=== PATIENT | male | born 1995 | race African-American/Black ===

== ENCOUNTER 2018-02-16 12:40 | Emergency (ER) | payer SELFPAY ==
--- NOTE | 2018-02-16 13:45 | ED.ADGEN ---
Past History Past Medical History: No Pertinent History Past Surgical History: No Surgical History Alcohol Use: None Drug Use: None Adult General Chief Complaint Chief Complaint Chest, abdominal pain [facility] HPI Patient is a 42-year-old -Northern Irish male with unknown medical history presents with left-sided upper abdominal and chest pain. No shortness of breath , no fever no cough. No nausea vomiting, hematemesis, coffee-ground emesis. No constipation or diarrhea. No urinary frequency urgency or hematuria. No history of kidney stones. Patient states that he has kidney issues as previously required surgery. He is unable to specify what surgery was aware surgery may have occurred. Patient recently relocated from [place] and is living with his father. Although patient's is unknown, he appears to suffer from chronic cognitive impairment. [] Review of Systems Review of Systems ROS as per HPI All other systems were reviewed and found to be within normal limits, except as documented in this note. Current Medications Current Medications Current Medications Medications (Trade) Dose Ordered Sig/Daniele Start Time Stop Time Status Last Admin Dose Admin Magnesium Citrate (Citroma) 296 ml STK-MED ONCE 02/16/18 15:21 02/16/18 15:29 DC Allergies Allergies Allergies Coded Allergies Type Severity Reaction Last Updated Verified No Known Drug Allergies 02/16/18 No Physical Exam Physical Exam Constitutional: Well developed, well nourished, no acute distress, non-toxic appearance. [] HENT: Normocephalic, atraumatic, bilateral external ears normal, oropharynx moist, no oral exudates, nose normal. [] Eyes: PERRLA, EOMI, conjunctiva normal, no discharge. [] Neck: Normal range of motion, no tenderness, supple. [] Cardiovascular:Heart rate regular rhythm, no murmur [] Lungs & Thorax: Bilateral breath sounds clear to auscultation. [] Abdomen: Bowel sounds normal, soft, no tenderness. [] Skin: Warm, dry, no erythema, no rash. [] Back: No tenderness. [] Extremities: No tenderness. [] Neurologic: Alert and oriented X 3, normal motor function, normal sensory function, no focal deficits noted. [] Psychologic: Affect normal, judgement normal, mood normal. [] Current Patient Data Vital Signs Vital Signs Date Time Temp Pulse Resp B/P (MAP) Pulse Ox O2 Delivery O2 Flow Rate FiO2 02/16/18 12:47 97.9 90 18 100 Room Air EKG EKG [EKG: No acute findings] Radiology/Procedures Radiology/Procedures [Acute abdominal series: No acute findings per radiology report] Course & Med Decision Making Course & Med Decision Making Pertinent Labs and Imaging studies reviewed. (See chart for details) Prescription abdominal, chest pain. No nausea vomiting, and abdomen soft,] Final Impression Final Impression [1 chest pain nonspecific 2 abdominal pain nonspecific] Dragon Disclaimer Dragon Disclaimer This electronic medical record was generated, in whole or in part, using a voice recognition dictation system. KARENA KAHN DO Feb 16, 2018 13:45
--- NOTE | 2018-02-16 14:03 | RAD ---
Acute abdomen series. History: Chest and epigastric pain for 2 days. Comparison: None. Findings: Frontal chest radiograph. Cardiac silhouette appears within normal limits for size. No pneumoperitoneum, pneumothorax, or large pleural effusion seen. No focal infiltrate is identified. Supine and upright AP views of the abdomen. Bowel gas pattern is nonspecific, without evidence of small bowel obstruction. Mild-moderate colonic stool is present. Impression: No acute abnormality identified in the chest or abdomen. Electronically signed by: Reji Dean MD (02/16/2018 2:00 PM) [place] [id number]
--- NOTE | 2018-02-16 14:50 | EKG ---
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
[2018-02-16 15:00] VITALS: BP 122/72
[2018-02-16] MEDS ORDERED: MAGNESIUM CITRATE 296 ML SOLUTION. ONE (15:21)
[2018-02-16] MEDS ORDERED: MAGNESIUM CITRATE 296 ML SOLUTION. PO ONE (15:30)
== END 2018-02-16 15:29 | disposition home or self-care (01) ==
LOC: ER 12:40
DX: R10.12 Left upper quadrant pain (principal); R07.89 Other chest pain
CPT/HCPCS: 74022; 93005; 99284

== ENCOUNTER 2020-07-09 01:32 | Emergency (ER) | payer OTHER ==
[~2020-07-09] VITALS: Ht 180.3 cm; Wt 66.0 kg
--- NOTE | 2020-07-09 01:34 | PHYS DOC ---
Past History Past Medical History: No Pertinent History Past Surgical History: No Surgical History Smoking: Cigarettes Alcohol Use: None Drug Use: None General Adult HPI: HPI: '"My tooth on the back is really hurting tonight...".. " I think it broke off... " Patient is a 25 year old male who presents with above hx and complaints of dental pain ,dental infection and a fracture of molar #17. Patient has multiple areas of dental caries. Does have gingivitis. No trismus. Some mild adenopathy angle of left mandible. Does appear to have fractured tooth #17. No pointing abscess appreciated. Patient denies any history immunosuppression. No recent travel. No severe ill contacts. Patient does not normally follow-up pr [facility] care. Does not follow-up with a dentist. Patient currently rating pain on fractured molar as severe. Review of Systems: Review of Systems: Constitutional: Denies fever or chills Eyes: Denies change in visual acuity HENT: Denies nasal congestion or sore throat. Complains of dental pain Respiratory: Denies cough or shortness of breath Cardiovascular: Denies chest pain or edema GI: Denies abdominal pain, nausea, vomiting, bloody stools or diarrhea : Denies dysuria Musculoskeletal: Denies back pain or joint pain Integument: Denies rash Neurologic: Denies headache, focal weakness or sensory changes Endocrine: Denies polyuria or polydipsia Lymphatic: Denies swollen glands Psychiatric: Denies depression or anxiety Family History: Family History: Noncontributory to presentation Current Medications: Current Meds: See nursing for home meds Allergies: Allergies: Allergies Coded Allergies Type Severity Reaction Last Updated Verified No Known Drug Allergies 02/16/18 No Physical Exam: PE: Constitutional: Moderate to severe acute distress, non-toxic appearance. [] HENT: Normocephalic, atraumatic, bilateral external ears normal, oropharynx moist, no oral exudates, nose normal. Multiple areas of dental decay gingivitis and fractured tooth #17. Eyes: PERRLA, EOMI, conjunctiva normal, no discharge. [] Neck: Normal range of motion, no tenderness, supple, no stridor. [] Cardiovascular:Heart rate regular rhythm, no murmur [] Lungs & Thorax: Bilateral breath sounds equal apex with scattered wheezes on auscultation [] Abdomen: Bowel sounds normal, soft, no tenderness, no masses, no pulsatile masses. [] Skin: Warm, dry, no erythema, no rash. Tattoos. Back: No tenderness, no CVA tenderness. [] Extremities: No tenderness, no cyanosis, no clubbing, ROM intact, no edema. [] Neurologic: Alert and oriented X 3, normal motor function, normal sensory function, no focal deficits noted. [] Psychologic: Affect anxious, judgement normal, mood normal. [] EKG: EKG: [] Radiology/Procedures: Radiology/Procedures: [] Heart Score: C/O Chest Pain: N/A Risk Factors: Risk Factors: DM, Current or recent (<one month) smoker, HTN, HLP, family history of CAD, obesity. Risk Scores: Score 0 - 3: 2.5% MACE over next 6 weeks - Discharge Home Score 4 - 6: 20.3% MACE over next 6 weeks - Admit for Clinical Observation Score 7 - 10: 72.7% MACE over next 6 weeks - Early Invasive Strategies Course & Med Decision Making: Course & Med Decision Making Pertinent Labs and Imaging studies reviewed. (See chart for details) Take Tylenol and ibuprofen for pain. Take Keflex 500 mg 3 times a day. Follow- up with dentist. Use sugarless chewing gum to cover fractured molar 17 this may help reduce pain. Patient must follow-up with a dentist. Nothing completed in the ED tonight will fix his underlying pain cause. Must follow-up. Rinse mouth with Listerine 4 times a day after eating. Encourage patient to stop smoking. Impression: 1. Multiple dental caries and gingivitis 2. Dental infection 3. Fractured molar 17 [] Dragon Disclaimer: Dragon Disclaimer: This electronic medical record was generated, in whole or in part, using a voice recognition dictation system. Departure Departure: Referrals: PCP,NO (PCP) Scripts Cephalexin (KEFLEX) 750 Mg Capsule 500 MG PO TID for dental infection. for 10 Days, #20 CAP Prov: CED ARREAGA MD 07/09/20 Helen Disclaimer This chart was dictated in whole or in part using Voice Recognition software in a busy, high-work load, and often noisy Emergency Department environment. It ma y contain unintended and wholly unrecognized errors or omissions. Dragon Disclaimer This chart was dictated in whole or in part using Voice Recognition software in a busy, high-work load, and often noisy Emergency Department environment. It may contain unintended and wholly unrecognized errors or omissions. CED ARREAGA MD Jul 09, 2020 01:34
[2020-07-09 01:44] VITALS: BP 144/89
[2020-07-09] MEDS ORDERED: CEPH750C9 PO (02:00)
[2020-07-09] MEDS ORDERED: HYDROcodon/IBUPROFEN 7.5/200MG 1 TAB TABLET PO ONE (02:30)
[2020-07-09] MEDS ORDERED: CEPHALEXIN 250 MG CAPSULE PO ONE (02:30)
== END 2020-07-09 02:28 | disposition home or self-care (01) ==
LOC: ER 01:32
DX: S02.5XXA Fracture of tooth (traumatic), initial encounter for closed fracture (principal); K02.9 Dental caries, unspecified; K05.10 Chronic gingivitis, plaque induced; F17.210 Nicotine dependence, cigarettes, uncomplicated; X58.XXXA Exposure to other specified factors, initial encounter; Y93.89 Activity, other specified; Y92.89 Other specified places as the place of occurrence of the external cause; Y99.8 Other external cause status
CPT/HCPCS: 99283

== ENCOUNTER 2020-07-30 18:28 | Emergency (ER) | payer OTHER ==
[~2020-07-30] VITALS: Ht 180.3 cm; Wt 66.0 kg
[2020-07-30 18:28] VITALS: BP 162/120
[~2020-07-30 18:28] MED LIST: CEPH750C9 PO
[2020-07-30] MEDS ORDERED: HYDROcodone/APAP 5/325MG 1 TAB TABLET PO ONE (20:30)
[2020-07-30] MEDS ORDERED: AMOX1TAB61 PO (20:30)
[2020-07-30] MEDS ORDERED: IBUPROFEN 600 MG TABLET. PO ONE (20:30)
--- NOTE | 2020-07-30 20:30 | PHYS DOC ---
Past History Past Medical History: No Pertinent History (YOGI YOUSSEF APRN) Past Surgical History: Other Additional Past Surgical Histo: kidney (YOGI YOUSSEF APRN) Smoking: Cigarettes Alcohol Use: None Drug Use: None (YOGI YOUSSEF APRN) Adult General Chief Complaint Chief Complaint: DENTAL PROBLEM HPI HPI Patient is a 25-year-old male presents to the emergency department complaining of dental pain. Patient states he has had pain to the left forward upper tooth for the past 2 months. Patient states he has an appointment to see a dentist tomorrow. Patient denies allergies to medications, states she has not taken any prescription medications at home, patient states he is not on any antibiotics. Patient states he does not smoke cigarettes, does not drink alcohol, does not use illicit drugs. Patient denies visual changes, denies numbness or tingling to his mouth or face. Patient denies any drooling or pain in his jaw or neck. Patient denies chest pain, or shortness of breath, patient denies any other physical complaints or physical concerns. (YOGI YOUSSEF APRN) Review of Systems Review of Systems 14 body systems of review of systems have been reviewed. See HPI for pertinent positives and negative responses, otherwise all other systems are negative, nonpertinent or noncontributory. (YOGI YOUSSEF APRN) Allergies Allergies Allergies Coded Allergies Type Severity Reaction Last Updated Verified No Known Drug Allergies 07/09/20 No (YOGI YOUSSEF APRN) Physical Exam Physical Exam Constitutional: Well developed, well nourished, no acute distress, non-toxic appearance. 25-year-old male in no apparent distress. HENT: Normocephalic, atraumatic, bilateral external ears normal, oropharynx moist, no oral exudates, nose normal. No trismus appreciated, no drooling appreciated, no tonsillar swelling, no signs of laryngeal infection. No lymphadenopathy of the head or neck appreciated, poor dental caries, multiple missing and broken teeth. No abscess is appreciated. Eyes: PERRLA, EOMI, conjunctiva normal, no discharge. Neck: Normal range of motion, no tenderness, supple, no stridor. Cardiovascular:Heart rate regular rhythm, no murmur Lungs & Thorax: Bilateral breath sounds clear to auscultation Abdomen: Bowel sounds normal, soft, no tenderness, no masses, no pulsatile masses. Skin: Warm, dry, no erythema, no rash. Back: No tenderness, no CVA tenderness. Extremities: No tenderness, no cyanosis, no clubbing, ROM intact, no edema. Neurologic: Alert and oriented X 3, normal motor function, normal sensory function, no focal deficits noted. Psychologic: Affect normal, judgement normal, mood normal. (YOGI YOUSSEF APRN) Current Patient Data Vital Signs Vital Signs Date Time Temp Pulse Resp B/P (MAP) Pulse Ox O2 Delivery O2 Flow Rate FiO2 07/30/20 18:28 98.2 87 16 162/120 (134) 98 Room Air (YOGI YOUSSEF APRN) EKG EKG [] (YOGI YOUSSEF APRN) Radiology/Procedures Radiology/Procedures [] (YOGI YOUSSEF APRN) Heart Score C/O Chest Pain: No Risk Factors: Risk Factors: DM, Current or recent (<one month) smoker, HTN, HLP, family history of CAD, obesity. Risk Scores: Risk Factors: DM, Current or recent (<one month) smoker, HTN, HLP, family history of CAD, obesity. (YOGI YOUSSEF APRN) Course & Med Decision Making Course & Med Decision Making Pertinent Labs and Imaging studies reviewed. (See chart for details) 25-year-old male, vital signs reviewed, presents emergency department concerning dental pain for the past 2 months. Physical examination showed marked dental caries with multiple broken teeth and decay. Will start on Augmentin twice daily x10 days, give to [place] here in the emergency department today. Patient gave verbal understanding of discharge home instructions, follow-up with dentist tomorrow, antibiotic use, primary care follow-up, return to ER precautions and concerns, was discharged home without incident. (YOGI YOUSSEF APRN) Course & Med Decision Making Did not see or evaluate patient. Agree with RIVET MACHINE OPERATOR's work-up and disposition per note (ÓSCAR ADAMES MD) Dragon Disclaimer Dragon Disclaimer This electronic medical record was generated, in whole or in part, using a voice recognition dictation system. (YOGI YOUSSEF APRN) Departure Departure: Impression: Primary Impression: Dental caries Additional Impression: Pain, dental Disposition: 01 DC HOME SELF CARE/HOMELESS Condition: GOOD Referrals: PCP,NO (PCP) Patient Instructions: Dental Caries Additional Instructions: Please keep your appointment with your dentist tomorrow, take antibiotics as directed, return to the emergency department for worsening symptoms or other concerns. EMERGENCY DEPARTMENT GENERAL DISCHARGE INSTRUCTIONS Thank you for coming to [facility] (ED) today and trusting us with you care. We trust that you had a positivie experience in our Emergency Department. If you wish to speak to the department management, you may call the director at [phone]. YOUR FOLLOW UP INSTRUCTIONS ARE FOLLOWS: 1. Do you have a private Doctor? If you do not have a private doctor, please ask for a resource list of physicians or clinics that may be able to assist you with follo w up care. 2. The Emergency Physician has interpreted your x-rays. The X-Ray specialist will also review them. If there is a change in the findings, you will be notified in 48 hours when at all possible. 3. A lab test or culture has been done, your results will be reviewed and you will be notified if you need a change in treatment. ADDITIONAL INSTRUCTIONS AND INFORMATION: 1. Your care today has been supervised by a physician who is specially trained in emergency care. Many problems require more than one evaluation for a complete diagnosis and treatment. We recommend that you schedule your follow up appointment as rec ommended to ensure complete treatment of you illness or injury. If you are unable to obtain follow up care and continue to have a problem, or if your condition worsens, we recommend that you return to the ED. 2. We are not able to safely determine your condition over the phone nor are we able to give sound medical advice over the phone. For these safety reasons, if you call for medical advice we will ask you to come to the ED for further evaluation. 3. If you have any questions regarding these discharge instructions please call the ED at [phone]. SAFETY INFORMATION: In the interest of safety, wellness, and injury prevention; we encourage you to wear your sealbelt, if you smoke; quite smoking, and we encourage family to use a protective helmet for bicycling and other sporting events that present an increased risk for head injury. IF YOUR SYMPTOMS WORSEN OR NEW SYMPTOMS DEVELOP, OR YOU HAVE CONCERNS ABOUT YOUR CONDITION; OR IF YOUR CONDITION WORSENS WHILE YOU ARE WAITING FOR YOUR FOLLOW UP APPOINTMENT; EITHER CONTACT YOUR PRIMARY CARE DOCTOR, THE PHYSICIAN WHOSE NAME AND NUMBER YOU WERE GIVEN, OR RETURN TO THE ED IMMEDIATELY. Scripts Amoxicillin/Potassium Clav (AUGMENTIN 875-125 TABLET) 1 Each Tablet 1 TAB PO BID for DENTAL INFECTION for 10 Days, #20 TAB 0 Refills Prov: YOGI YOUSSEF APRN 07/30/20 Problem Qualifiers YOGI YOUSSEF APRN Jul 30, 2020 20:30 ÓSCAR ADAMES MD Jul 30, 2020 22:05
== END 2020-07-30 20:44 | disposition home or self-care (01) ==
LOC: ER 18:28
DX: K02.9 Dental caries, unspecified (principal); F17.210 Nicotine dependence, cigarettes, uncomplicated
CPT/HCPCS: 99283

== ENCOUNTER 2020-12-22 13:35 | Emergency (ER) | payer MEDICARE, OTHER ==
[~2020-12-22] VITALS: Ht 180.3 cm; Wt 67.0 kg
[~2020-12-22 13:35] MED LIST changes: +AMOX1TAB61 PO
[2020-12-22 13:53] VITALS: BP 135/86
--- NOTE | 2020-12-22 14:03 | PHYS DOC ---
Past History Past Medical History: No Pertinent History Past Surgical History: Other Additional Past Surgical Histo: kidney Smoking: Cigarettes Alcohol Use: None Drug Use: None Adult General Chief Complaint Chief Complaint: CHEST PAIN HPI HPI Patient is a 25-year-old male who presents for vague chest pain. Onset was 3 days ago without any known inciting event, ingestion, exposure or any known inciting mechanism. Nothing known makes better, eating, physical movement and certain body positions make worse. Pain is described as sharp and 7/10 severity without any radiation. He has never had any pain like this in the past. He is otherwise healthy, denies any medical issues. No prior history of cardiac disease, is never passed out while playing sports, no family history of early cardiac disease, he had no issues as a child with no known congenital abnormalities of the heart or provocative work-up. Used to smoke, no alcohol or drug use reported Review of Systems Review of Systems Fourteen body systems of review of systems have been reviewed. See HPI for pertinent positives and negative responses, other fermin all other systems are negative, non-pertinent or non-contributory Allergies Allergies Allergies Coded Allergies Type Severity Reaction Last Updated Verified No Known Drug Allergies 07/09/20 No Physical Exam Physical Exam Constitutional: Well developed, well nourished, no acute distress, non-toxic appearance. HENT: Normocephalic, atraumatic, bilateral external ears normal, oropharynx moist, no oral exudates, nose normal. Eyes: PERRLA, EOMI, conjunctiva normal, no discharge. Neck: Normal range of motion, no tenderness, supple, no stridor. Cardiovascular: Heart rate regular, sinus rhythm, no murmurs rubs or gallops Lungs & Thorax: Bilateral breath sounds clear to auscultation Abdomen: Bowel sounds normal, soft, no tenderness, no masses, no pulsatile masses. Nonsurgical abdomen, no peritoneal signs Skin: Warm, dry, no erythema, no rash. Back: No tenderness, no CVA tenderness. Extremities: No tenderness, no cyanosis, no clubbing, ROM intact, no edema. Neurologic: Alert and oriented X 3, grossly normal motor & sensory function, no focal deficits noted. Psychologic: Flat affect, normal mood EKG EKG EKG ordered and interpreted by myself at 1346 hrs. as sinus rhythm at 85 bpm, unremarkable intervals, no axis deviation, no acute ischemic findings Radiology/Procedures Radiology/Procedures [] Heart Score C/O Chest Pain: Yes HEART Score for Chest Pain: HEART Score for Chest Pain Response (Comments) Value History Slighlty/Non-Suspicious 0 ECG Normal 0 Age < 45 0 Risk Factors No Risk Factors 0 Total 0 Risk Factors: Risk Factors: DM, Current or recent (<one month) smoker, HTN, HLP, family history of CAD, obesity. Risk Scores: Risk Factors: DM, Current or recent (<one month) smoker, HTN, HLP, family history of CAD, obesity. Course & Med Decision Making Course & Med Decision Making Vitals stable. HPI, physical examination and EKG nonconcerning for any emergent or surgical issues PERC negative. No obvious event or exposure, low risk for adverse cardiac event despite not being able to fully perform heart score I discussed limited indication for further diagnostic work-up in ER setting. I disclose extremely low risk of any concerning cardiopulmonary versus other event given his symptomology and advised close outpatient follow-up for continued work-up Dragon Disclaimer Dragon Disclaimer This electronic medical record was generated, in whole or in part, using a voice recognition dictation system. Departure Departure: Impression: Primary Impression: Chest pain, unspecified Disposition: HOME / SELF CARE / HOMELESS Condition: STABLE Referrals: PCP,TITO (PCP) Additional Instructions: You were seen for chest pain. Your workup did not show any acute abnormalities today, but does not indicate that you do not have underlying cardiovascular disease. You do need to follow up with your primary doctor and potentially a assistant grocery store manager for further evaluation and treatment. You should return to the ED if you develop worsening chest pain, shortness of breath, fever, abnormal sweating, leg swelling, or any other new or concerning symptoms. RAJANI DIAL DO Dec 22, 2020 14:03
--- NOTE | 2020-12-22 18:17 | EKG ---
[address] [address] Test Date: 2020-12-22 Test Time: 13:46:37 Pat Name: SALVATORE WHEELER Department: Room: Gender: M Specialty Development Consultant: BETHANIE : 1995 Requested By: RAJANI DIAL Order Number: [id number] Reading MD: Measurements Intervals [place] Rate: 85 P: 43 [place]: 150 QRS: 62 QRSD: 98 T: 29 QT: 324 QTc: 390 Interpretive Statements SINUS RHYTHM NORMAL ECG RI6.02 No previous ECG available for comparison
== END 2020-12-22 14:20 | disposition home or self-care (01) ==
LOC: ER 13:35
DX: R07.89 Other chest pain (principal); F17.210 Nicotine dependence, cigarettes, uncomplicated
CPT/HCPCS: 93005; 99283

== ENCOUNTER 2021-04-12 21:09 | Emergency (ER) | payer MEDICARE, OTHER ==
[~2021-04-12] VITALS: Ht 180.3 cm; Wt 70.5 kg
[2021-04-12 21:20] VITALS: BP 163/90
--- NOTE | 2021-04-12 21:31 | PHYS DOC ---
Past History Past Medical History: No Pertinent History Past Surgical History: Other Additional Past Surgical Histo: nasal surgery Smoking: Cigarettes Alcohol Use: None Drug Use: None General Adult EDM: Chief Complaint: MULTIPLE COMPLAINTS HPI: HPI: ".. I still getting chest pain .. off and on.. here in [place].. I was here before to get it checked out... and I got my Rt. middle finger caught in door at work... " Patient is a 25 year old male who presents with above hx and complaints of injury to Rt. middle or third finger which got caught in a door while working at [employer]. Pain is located on distal tip of finger. Reportedly got finger caught in a door that was shutting. Patient is right-hand dominant Pt. also complaints of chest pain after lifting boxes at [employer]. Pain is on right- sided chest wall. Is somewhat reproducible with movement. Patient denies any trauma to the chest wall, may have injured it lifting boxes at work. Review of Systems: Review of Systems: Constitutional: Denies fever or chills Eyes: Denies change in visual acuity HENT: Denies nasal congestion or sore throat Respiratory: Denies cough or shortness of breath Cardiovascular: Complains of chest pain GI: Denies abdominal pain, nausea, vomiting, bloody stools or diarrhea : Denies dysuria Musculoskeletal: Complains of right third finger contusion. Integument: Denies rash Neurologic: Denies headache, focal weakness or sensory changes Endocrine: Denies polyuria or polydipsia Lymphatic: Denies swollen glands Psychiatric: Denies depression or anxiety Family History: Family History: Noncontributory to presentation Current Medications: Current Meds: See nursing for home meds Allergies: Allergies: Allergies Coded Allergies Type Severity Reaction Last Updated Verified No Known Drug Allergies 04/12/21 No Physical Exam: PE: Constitutional: no acute distress, non-toxic appearance. [] HENT: Normocephalic, atraumatic, bilateral external ears normal, oropharynx moist, no oral exudates, nose normal. [] Chipped incisor #8 Eyes: PERRLA, EOMI, conjunctiva normal, no discharge. [] Neck: Normal range of motion, no tenderness, supple, no stridor. [] Cardiovascular:Heart rate regular rhythm, no murmur [] Lungs & Thorax: Bilateral breath sounds equal apex with scattered wheezes on auscultation [] Abdomen: Bowel sounds normal, soft, no tenderness, no masses, no pulsatile masses. [] Skin: Warm, dry, no erythema, no rash. Tattoos Back: No tenderness, no CVA tenderness. [] Extremities: No tenderness, no cyanosis, no clubbing, ROM intact, no edema. Except findings to this right third finger tip. Roll of money in Rt. sock. Bag of marijuana in Lt sock. Neurologic: Alert and oriented X 3, normal motor function, normal sensory function, no focal deficits noted. [] Psychologic: Affect normal, judgement normal, mood normal. [] Current Patient Data: Vital Signs: Vital Signs Date Time Temp Pulse Resp B/P (MAP) Pulse Ox O2 Delivery O2 Flow Rate FiO2 04/12/21 21:20 98.2 100 18 163/90 (114) 99 Room Air EKG: EKG: My interpretation EKG shows a sinus tachycardia 101 bpm. There are some T wave strain pattern in the anterior leads. But no findings of acute STEMI of contralateral changes time of this EKG is 2126 hrs. [] My interpretation EKG #2 shows a sinus rhythm at 75 bpm. No findings acute STEMI or contralateral changes. Time of EKG is 108 hours Radiology/Procedures: Radiology/Procedures: [[place] [address] IMAGING REPORT Signed PATIENT: SALVATORE WHEELER ACCOUNT: [id number] : 1995 LOCATION: ER AGE: 25 SEX: M EXAM STATUS: REG ER ORD. PHYSICIAN: CED ARREAGA MD REASON: cp PROCEDURE: PORTABLE CHEST 1V EXAM: AP View of the chest DATE: 04/12/2021 9:48 PM INDICATION: Chest pain COMPARISON: No Prior FINDINGS: The heart is not enlarged. Mediastinal and hilar contours are normal. No focal parenchymal airspace opacity. No pleural effusion or pneumothorax. IMPRESSION: 1. No radiographic evidence for acute cardiopulmonary process. Electronically signed by: Jn Amador MD (04/12/2021 10:03 PM) [facility] DICTATED AND SIGNED BY: JN AMADOR MD DATE: 04/12/212201 CC: CED ARREAGA MD; PCP,NO ~MTH0 0 ][address] [place] [id number] IMAGING REPORT Signed PATIENT: SALVATORE WHEELER ACCOUNT: [id number] : 1995 LOCATION: ER AGE: 25 SEX: M EXAM STATUS: REG ER ORD. PHYSICIAN: CED ARREAGA MD REASON: injury at [facility], PAIN 2-3 METACARPALS & DIGITS PROCEDURE: HAND RIGHT 3V EXAM: PA, Oblique and lateral views of the right hand DATE: 04/12/2021 9:47 PM INDICATION: Reason: injury at [facility], PAIN 2-3 METACARPALS DIGITS / Spl. Instructions: / History: . COMPARISON: No Prior FINDINGS: No evidence of acute fracture or dislocation. Joint spaces are preserved without significant degenerative/proliferative change. IMPRESSION: 1. No acute fracture or dislocation. Electronically signed by: Jn Amador MD (04/12/2021 10:04 PM) [facility] DICTATED AND SIGNED BY: JN AMADOR MD DATE: 04/12/212202 CC: CED ARREAGA MD; PCP,NO ~MTH0 0 Heart Score: C/O Chest Pain: Yes HEART Score for Chest Pain: HEART Score for Chest Pain Response (Comments) Value History Slighlty/Non-Suspicious 0 ECG Normal 0 Age < 45 0 Risk Factors No Risk Factors 0 Troponin < Normal Limit 0 Total 0 Risk Factors: Risk Factors: DM, Current or recent (<one month) smoker, HTN, HLP, family history of CAD, obesity. Risk Scores: Score 0 - 3: 2.5% MACE over next 6 weeks - Discharge Home Score 4 - 6: 20.3% MACE over next 6 weeks - Admit for Clinical Observation Score 7 - 10: 72.7% MACE over next 6 weeks - Early Invasive Strategies Course & Med Decision Making: Course & Med Decision Making Pertinent Labs and Imaging studies reviewed. (See chart for details) Take Tylenol ibuprofen for pain. Ice packs as needed to right third finger. Follow-up workman comp. Return if any concerns. Follow-up primary care. Is concerned about chest pain get outpatient stress test. Encourage patient to stop smoking. Impression: 1. Contusion crush injury right third finger-no fracture 2. Chest pain-appears to be chest wall. 3. Tobacco and Marijuana use [] Dragon Disclaimer: Dragon Disclaimer: This electronic medical record was generated, in whole or in part, using a voice recognition dictation system. Departure Departure: Referrals: PCP,NO (PCP) Helen Disclaimer This chart was dictated in whole or in part using Voice Recognition software in a busy, high-work load, and often noisy Emergency Department environment. It may contain unintended and wholly unrecognized errors or omissions. CED ARREAGA MD Apr 12, 2021 21:31
[2021-04-12] MEDS ORDERED: IV RINGERS SOLUTION,LACTATED 1,000 ML IV SCH (22:00)
[2021-04-12] MEDS ORDERED: ASPIRIN CHEWABLE 81 MG TABLET. PO ONE (22:00)
[2021-04-12 22:03] LABS: BASO % 1 % (0-3); EOS # 0.2 x10^3/uL (0.0-0.7); EOS % 3 % (0-3); HEMATOCRIT 45.4 % (39.0-53.0); HEMOGLOBIN 15.3 g/dL (13.0-17.5); LYMPH # 1.7 x10^3/uL (1.0-4.8); LYMPH % 22 % (24-48); MEAN CORPUSCULAR HEMOGLOBIN 33 pg (25-35); MEAN CORPUSCULAR HGB CONC 34 g/dL (31-37); MEAN CORPUSCULAR VOLUME 99 fL (79-100); MONO # 0.5 x10^3/uL (0.0-1.1); MONO % 7 % (0-9); NEUT # 5.2 x10^3uL (1.8-7.7); NEUT % 67 % (31-73); PLATELET COUNT 279 x10^3/uL (140-400); RED CELL DISTRIBUTION WIDTH 12.4 % (11.5-14.5); WHITE BLOOD COUNT 7.7 x10^3/uL (4.0-11.0)
--- NOTE | 2021-04-12 22:05 | RAD ---
EXAM: AP View of the chest DATE: 04/12/2021 9:48 PM INDICATION: Chest pain COMPARISON: No Prior FINDINGS: The heart is not enlarged. Mediastinal and hilar contours are normal. No focal parenchymal airspace opacity. No pleural effusion or pneumothorax. IMPRESSION: 1. No radiographic evidence for acute cardiopulmonary process. Electronically signed by: Jn Amador MD (04/12/2021 10:03 PM) GÓMEZ
--- NOTE | 2021-04-12 22:06 | RAD ---
EXAM: PA, Oblique and lateral views of the right hand DATE: 04/12/2021 9:47 PM INDICATION: Reason: injury at [facility], PAIN 2-3 METACARPALS DIGITS / Spl. Instructions: / History : . COMPARISON: No Prior FINDINGS: No evidence of acute fracture or dislocation. Joint spaces are preserved without significant degenera tive/proliferative change. IMPRESSION: 1. No acute fracture or dislocation. Electronically signed by: Jn Amador MD (04/12/2021 10:04 PM) GÓMEZ
[2021-04-12 22:10] LABS: GFR 108.5; POTASSIUM 3.7 mmol/L (3.5-5.1)
[2021-04-12 22:22] LABS: DIRECT BILIRUBIN 0.2 mg/dL (0.0-0.2); MAGNESIUM 2.4 mg/dL (1.8-2.4); TOTAL BILIRUBIN 1.1 mg/dL (0.2-1.0); TOTAL PROTEIN 8.4 g/dL (6.4-8.2)
--- NOTE | 2021-04-12 22:33 | EKG ---
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
[2021-04-13] MEDS ORDERED: KETOROLAC 30 MG/ML VIAL. IVP ONE
[2021-04-13 01:14] LABS: BILIRUBIN,URINE NEG (NEG); CLARITY,URINE CLEAR; COLOR,URINE YELLOW; GLUCOSE,URINE NEG (NEG); NITRITE,URINE NEG (NEG)
[2021-04-13 01:15] LABS: BACTERIA,URINE FEW /HPF (0-FEW); SQUAMOUS EPITHELIAL CELL,UR OCC /LPF
[2021-04-13 01:27] LABS: BARBITURATES NEG (NEG); BENZODIAZEPINES NEG (NEG); CANNABINOIDS NEG (NEG); COCAINE NEG (NEG); METHADONE NEG (NEG); OPIATES NEG (NEG); PHENCYCLIDINE NEG (NEG)
[2021-04-13 01:34] LABS: AMPHETAMINE/METHAMPHETAMINE POS (NEG)
--- NOTE | 2021-04-13 02:29 | EKG ---
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
== END 2021-04-13 02:25 | disposition home or self-care (01) ==
LOC: ER 21:09
DX: S60.031A Contusion of right middle finger without damage to nail, initial encounter (principal); R07.89 Other chest pain; F17.210 Nicotine dependence, cigarettes, uncomplicated; W23.0XXA Caught, crushed, jammed, or pinched between moving objects, initial encounter; Y93.89 Activity, other specified; Y92.89 Other specified places as the place of occurrence of the external cause; Y99.8 Other external cause status
CPT/HCPCS: 36415; 71045; 73130; 80048; 80076; 80307; 81001; 82550; 83690; 83735; 83880; 84443; 84484; 85025; 85379; 85610; 85730; 87086; 93005; 96361; 96374; 99285; J1885; J7120; 87077

== ENCOUNTER 2021-07-20 22:27 | Emergency (ER) | payer MEDICARE, OTHER ==
[~2021-07-20] VITALS: Ht 180.3 cm; Wt 73.0 kg
--- NOTE | 2021-07-20 22:56 | PHYS DOC ---
Past History Past Medical History: No Pertinent History Past Surgical History: Other Additional Past Surgical Histo: "kidney surgery" Smoking: Cigarettes Alcohol Use: None Drug Use: None General Adult EDM: Chief Complaint: CHEST PAIN HPI: HPI: 26-year-old male presents to emergency room with chest pain. The patient's pain started yesterday while he was laying down. He describes it as a sharp central chest pain. It does not radiate. He is not short of breath or diaphoretic. No history of heart or lung problems. Patient does state that he has heartburn from time to time but does not take any medications. He has no other complaints at this time. Review of Systems: Review of Systems: Constitutional: Denies fever or chills Eyes: Denies change in visual acuity HENT: Denies nasal congestion or sore throat Respiratory: Denies cough or shortness of breath Cardiovascular: Chest pain GI: Denies abdominal pain, nausea, vomiting, bloody stools or diarrhea : Denies dysuria Musculoskeletal: Denies back pain or joint pain Integument: Denies rash Neurologic: Denies headache, focal weakness or sensory changes Endocrine: Denies polyuria or polydipsia Lymphatic: Denies swollen glands Psychiatric: Denies depression or anxiety Allergies: Allergies: Allergies Coded Allergies Type Severity Reaction Last Updated Verified No Known Drug Allergies 04/12/21 No Physical Exam: PE: Constitutional: Well developed, well nourished, no acute distress, non-toxic appearance. [] HENT: Normocephalic, atraumatic, bilateral external ears normal, oropharynx moist, no oral exudates, nose normal. [] Eyes: PERRLA, EOMI, conjunctiva normal, no discharge. [] Neck: Normal range of motion, no tenderness, supple, no stridor. [] Cardiovascular: Heart rate 97, regular rhythm, no murmur [] Lungs & Thorax: Bilateral breath sounds clear to auscultation [] Abdomen: Bowel sounds normal, soft, no tenderness, no masses, no pulsatile masses. [] Skin: Warm, dry, no erythema, no rash. [] Back: No tenderness, no CVA tenderness. [] Extremities: No tenderness, no cyanosis, no clubbing, ROM intact, no edema. [] Neurologic: Alert and oriented X 3, normal motor function, normal sensory fu nction, no focal deficits noted. [] Psychologic: Affect normal, judgement normal, mood normal. [] Current Patient Data: Vital Signs: Vital Signs Date Time Temp Pulse Resp B/P (MAP) Pulse Ox O2 Delivery O2 Flow Rate FiO2 07/20/21 22:32 98.3 94 22 142/86 (104) 100 Room Air EKG: EKG: Sinus rhythm, rate 97, normal axis, no ST elevation or depression. [] Radiology/Procedures: Radiology/Procedures: [] Impressions: EXAMINATION: XR CHEST 1V CLINICAL HISTORY: Chest pain. EXAM DATE/TIME: 07/20/2021 11:45 PM COMPARISON: 04/12/2021 FINDINGS: Lines, Tubes, and Devices: None. Cardiomediastinal Silhouette: Within normal limits. Lungs and Pleura: Mild patchy opacities in the right lower lung zone. No evidence of pleural effusion or pneumothorax. Bones and Soft Tissues: No acute osseous abnormality. IMPRESSION: Mild patchy airspace disease in the right lower lung zone. Electronically signed by: Sctoty Perdomo DO (07/21/2021 12:47 AM) [facility] DICTATED AND SIGNED BY: SCOTTY PERDOMO DO DATE: 07/21/21 0047 CC: KARENA MACHADO DO; PCP,NO ~ Heart Score: C/O Chest Pain: Yes HEART Score for Chest Pain: HEART Score for Chest Pain Response (Comments) Value History Slighlty/Non-Suspicious 0 ECG Normal 0 Age < 45 0 Risk Factors 1 or 2 Risk Factors 1 Troponin < Normal Limit 0 Total 1 Risk Factors: Risk Factors: DM, Current or recent (<one month) smoker, HTN, HLP, family history of CAD, obesity. Risk Scores: Score 0 - 3: 2.5% MACE over next 6 weeks - Discharge Home Score 4 - 6: 20.3% MACE over next 6 weeks - Admit for Clinical Observation Score 7 - 10: 72.7% MACE over next 6 weeks - Early Invasive Strategies Course & Med Decision Making: Course & Med Decision Making Pertinent Labs and Imaging studies reviewed. (See chart for details) The patient's EKG is unremarkable. His chest x-ray is negative for acute findings. His labs are unremarkable. His troponin is negative. I have given him 20 g of Pepcid for his discomfort. This is likely breakthrough heartburn. He is stable for discharge at this time. [] Dragon Disclaimer: Dragon Disclaimer: This electronic medical record was generated, in whole or in part, using a voice recognition dictation system. Departure Departure: Impression: Primary Impression: Chest pain Additional Impression: GERD (gastroesophageal reflux disease) Disposition: HOME / SELF CARE / HOMELESS Condition: STABLE Referrals: PCPTITO (PCP) Patient Instructions: Diet for Gastroesophageal Reflux Disease, Adult, [id number] KARENA MACHADO DO Jul 20, 2021 22:56
[2021-07-20] MEDS ORDERED: KETOROLAC 30 MG/ML VIAL. IVP ONE (23:00)
[2021-07-20] MEDS ORDERED: FAMOTIDINE 20 MG/2 ML VIAL IVP ONE (23:00)
[2021-07-20 23:03] LABS: BASO % 1 % (0-3); EOS # 0.2 x10^3/uL (0.0-0.7); EOS % 3 % (0-3); HEMATOCRIT 43.9 % (39.0-53.0); HEMOGLOBIN 14.7 g/dL (13.0-17.5); LYMPH # 1.8 x10^3/uL (1.0-4.8); LYMPH % 20 % (24-48); MEAN CORPUSCULAR HEMOGLOBIN 33 pg (25-35); MEAN CORPUSCULAR HGB CONC 33 g/dL (31-37); MEAN CORPUSCULAR VOLUME 100 fL (79-100); MONO # 0.5 x10^3/uL (0.0-1.1); MONO % 6 % (0-9); NEUT # 6.4 x10^3uL (1.8-7.7); NEUT % 71 % (31-73); PLATELET COUNT 240 x10^3/uL (140-400); RED BLOOD COUNT 4.39 x10^6/uL (4.30-5.70); RED CELL DISTRIBUTION WIDTH 12.7 % (11.5-14.5)
[2021-07-20 23:17] LABS: GFR 107.7; POTASSIUM 3.7 mmol/L (3.5-5.1)
[2021-07-20 23:23] LABS: ALBUMIN 4.1 g/dL (3.4-5.0); TOTAL BILIRUBIN 1.1 mg/dL (0.2-1.0); TOTAL PROTEIN 8.2 g/dL (6.4-8.2)
[2021-07-21 00:12] VITALS: BP 139/86
--- NOTE | 2021-07-21 00:50 | RAD ---
EXAMINATION: XR CHEST 1V CLINICAL HISTORY: Chest pain. EXAM DATE/TIME: 07/20/2021 11:45 PM COMPARISON: 04/12/2021 FINDINGS: Lines, Tubes, and Devices: None. Cardiomediastinal Silhouette: Within normal limits. Lungs and Pleura: Mild patchy opacities in the right lower lung zone. No evidence of pleural effusion or pneumothorax. Bones and Soft Tissues: No acute osseous abnormality. IMPRESSION: Mild patchy airspace disease in the right lower lung zone. Electronically signed by: Scotty Echevarria DO (07/21/2021 12:47 AM) PRAFUL
--- NOTE | 2021-07-21 02:06 | EKG ---
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
== END 2021-07-21 01:08 | disposition home or self-care (01) ==
LOC: ER 22:27
DX: K21.9 Gastro-esophageal reflux disease without esophagitis (principal); F17.210 Nicotine dependence, cigarettes, uncomplicated
CPT/HCPCS: 36415; 71045; 80053; 84484; 85025; 93005; 96374; 96375; 99285; J1885; J3490